=== PATIENT | male | born 1995 | race African-American/Black ===

== ENCOUNTER 2024-03-23 16:04 | Emergency (ER) | payer OTHER ==
[~2024-03-23] VITALS: Ht 167.6 cm; Wt 77.3 kg
[2024-03-23 16:16] VITALS: BP 120/57; PULSE 83; RESP 18; TEMP 97.7; O2SAT 99
[2024-03-23] MEDS ORDERED: AZIT250T9 PO (21:53)
[2024-03-23] MEDS ORDERED: PSEU-191 PO (21:53)
[2024-03-23] MEDS ORDERED: CORTSUSP AS (21:56)
== END 2024-03-23 22:05 | disposition home or self-care (01) ==
LOC: EMS 16:04
DX: H61.22 Impacted cerumen, left ear (principal); H66.92 Otitis media, unspecified, left ear
CPT/HCPCS: 69209; 99283